=== PATIENT | female | born 1960 | race Caucasian/White ===

== ENCOUNTER 2017-12-28 19:28 | Observation (INO) | payer OTHER ==
[~2017-12-28] VITALS: Ht 162.6 cm; Wt 68.0 kg
[2017-12-28] MEDS ORDERED: ZOCOR20 MG PO (19:45)
[2017-12-28 20:12] LABS: ABSOLUTE EOSINOPHILS 0.1 thou/uL (0.0-0.7); ABSOLUTE LYMPHOCYTES 2.6 thou/uL (0.8-5.3); ABSOLUTE MONOCYTES 0.6 thou/uL (0.0-1.2); ABSOLUTE NEUTROPHILS 5.9 thou/uL (1.6-8.1); BASOPHILS 0.5 %; EOSINOPHILS 0.9 %; HEMATOCRIT 45.4 % (37.0-47.0); HEMOGLOBIN 15.1 gm/dL (12.0-15.0); LYMPHOCYTES 28.4 %; MCH 29.4 pg (26.0-34.0); MCHC 33.3 g/dL (28.0-37.0); MCV 88.3 fL (80.0-100.0); MONOCYTES 6.3 %; NUCLEATED RBCS 0 /100WBC; PLATELET COUNT* 321 thou/uL (150-400); POLYS 63.9 %; RBC 5.14 mil/uL (4.20-5.00); RDW-CV 13.4 % (10.5-14.5); WBC 9.2 thou/uL (4.0-11.0)
[2017-12-28 20:13] LABS: URINE BILIRUBIN NEGATIVE (Negative); URINE BLOOD 3+ (Negative); URINE CLARITY CLEAR; URINE COLOR YELLOW; URINE GLUCOSE-RANDOM NEGATIVE (Negative); URINE KETONES TRACE (Negative); URINE LEUKOCYTES-REFLEX 1+ (Negative); URINE NITRITE-REFLEX NEGATIVE (Negative); URINE PROTEIN NEGATIVE (Negative); URINE SPECIFIC GRAVITY >= 1.030 (1.005-1.030); URINE UROBILINOGEN 0.2 E.U./dl (0.2-1.0)
[2017-12-28 20:17] LABS: CALCIUM 9.1 mg/dL (8.5-10.1); CREATININE 0.8 mg/dL (0.6-1.3); POTASSIUM 3.9 mmol/L (3.5-5.1)
[2017-12-28 20:22] LABS: ALBUMIN 4.1 g/dL (3.4-5.0); TOTAL BILIRUBIN 0.5 mg/dL (<0.1-1.0); TOTAL PROTEIN 7.8 g/dL (6.4-8.2)
[2017-12-28 20:36] LABS: CASTS None Seen /LPF (None Seen); MUCUS None Seen strn/LPF (None Seen); SQUAMOUS >10 Many /LPF (0-3)
[2017-12-28 20:37] LABS: BACTERIA-REFLEX 1-9 Few /HPF (None Seen); CRYSTALS None Seen /LPF (None Seen); URINE WBC-REFLEX 0-5 Rare /HPF (0-5)
[2017-12-28 23:35] VITALS: BP 111/69
[2017-12-28 23:53] VITALS: BP 112/66
[2017-12-29 03:57] LABS: ABSOLUTE EOSINOPHILS 0.1 thou/uL (0.0-0.7); ABSOLUTE LYMPHOCYTES 3.3 thou/uL (0.8-5.3); ABSOLUTE MONOCYTES 0.6 thou/uL (0.0-1.2); ABSOLUTE NEUTROPHILS 4.3 thou/uL (1.6-8.1); BASOPHILS 0.4 %; EOSINOPHILS 1.2 %; HEMOGLOBIN 13.8 gm/dL (12.0-15.0); LYMPHOCYTES 40.1 %; MCH 28.8 pg (26.0-34.0); MCHC 32.8 g/dL (28.0-37.0); MCV 87.8 fL (80.0-100.0); MONOCYTES 6.8 %; MPV 8.2 fl. (7.2-11.1); NUCLEATED RBCS 0 /100WBC; PLATELET COUNT* 261 thou/uL (150-400); POLYS 51.5 %; RBC 4.78 mil/uL (4.20-5.00); RDW-CV 13.6 % (10.5-14.5); WBC 8.2 thou/uL (4.0-11.0)
[2017-12-29 04:17] LABS: CALCIUM 8.8 mg/dL (8.5-10.1); CREATININE 0.6 mg/dL (0.6-1.3); MAGNESIUM 1.9 mg/dL (1.8-2.4); PHOSPHORUS* 4.6 mg/dL (2.5-4.9)
[2017-12-29 08:00] VITALS: BP 97/62
[2017-12-29 11:16] VITALS: BP 97/62
[2017-12-29 11:34] VITALS: BP 97/62
[2017-12-29 13:28] VITALS: BP 97/62
== END 2017-12-29 11:50 | disposition home or self-care (01) ==
LOC: M.ERS 19:28 → M.TBA-ER 22:41 → M.ORTHSURG 22:41
PROVIDERS: Physician Assistant; ADMIT Surgery
DX: K40.30 Unilateral inguinal hernia, with obstruction, without gangrene, not specified as recurrent (principal); E78.5 Hyperlipidemia, unspecified; F17.210 Nicotine dependence, cigarettes, uncomplicated

== ENCOUNTER 2020-03-22 11:36 | Emergency (ER) | payer OTHER ==
[~2020-03-22] VITALS: Ht 162.6 cm; Wt 72.6 kg
[~2020-03-22 11:36] MED LIST: ZOCOR20 MG PO
[2020-03-22] MEDS ORDERED: NEURONTIN 300M300 M2 PO (11:47)
[2020-03-22] MEDS ORDERED: TRAMADOL 50 MG50 MG PO (13:34)
[2020-03-22 13:45] VITALS: BP 130/88
== END 2020-03-22 13:45 | disposition home or self-care (01) ==
LOC: M.ERS 11:36
DX: M25.551 Pain in right hip (principal); Z79.899 Other long term (current) drug therapy; Z88.6 Allergy status to analgesic agent; Z87.442 Personal history of urinary calculi; Z98.51 Tubal ligation status